=== PATIENT | male | born 1935 | race Caucasian/White ===

== ENCOUNTER 2017-11-06 05:19 | Day surgery (SDC) | payer MEDICARE, OTHER ==
[~2017-11-06] VITALS: Ht 172.7 cm; Wt 63.0 kg
[~2017-11-06 05:19] MED LIST: ASCO500 PO; ASPI-1182 PO; ATOR10TA84 PO; METAMUCIL283 GM PO; MULT-1124 PO; PANT40I PO; TAMS0.4C32 PO; VITAMIN D PO
[2017-11-06] MEDS ORDERED: SODIUM CHLORIDE 0.9% 1,000 ML IV ONE ×2 (05:56→07:15)
[2017-11-06 07:03] LABS: BASOPHILS % (AUTO) 0.6 % (0.0-2.0); EOSINOPHILS % (AUTO) 1.5 % (1.0-6.0); HEMATOCRIT 38.2 % (41-53); HEMOGLOBIN 13.2 g/dL (13.5-17.5); LYMPHOCYTES % (AUTO) 20.8 % (22.0-44.0); MEAN CORPUSCULAR HEMOGLOBIN 31.1 pg (26.0-34.0); MEAN CORPUSCULAR HGB CONC 34.5 G/dL (31.0-37.0); MEAN CORPUSCULAR VOLUME 90 fL (80-100); MONOCYTES # (AUTO) 0.5 K/uL (0.1-1.0); MONOCYTES % (AUTO) 9.7 % (2.0-9.0); NEUTROPHILS # (AUTO) 3.3 K/uL (1.8-7.7); NEUTROPHILS % (AUTO) 67.4 % (40.0-70.0); PLATELET COUNT (AUTO) 162 K/uL (150-450); RED BLOOD CELL COUNT(AUTO) 4.25 MIL/uL (4.50-5.90); RED CELL DISTRIBUTION WIDTH 13.2 % (11.5-14.5)
[2017-11-06 07:14] LABS: ANION GAP 6 mmol/L (8-16); CALCIUM, TOTAL 8.5 mg/dL (8.8-10.5); CARBON DIOXIDE 28 mmol/L (22-29); CHLORIDE 105 mmol/L (98-107); CREATININE 0.82 mg/dL (0.60-1.30); GLUCOSE,RANDOM 101 mg/dL (70-110); POTASSIUM 3.9 mmol/L (3.5-5.1); PROTHROMBIN TIME 10.4 SEC (9.4-11.6); SODIUM SERUM 139 mmol/L (136-145); UREA NITROGEN, BLOOD 18 mg/dL (7-18)
[2017-11-06 07:15] LABS: GLOMERULAR FILTR. RATE CALC > 60 mL/min (>60)
[2017-11-06] MEDS ORDERED: AMLO5TAB66 PO (07:32)
[2017-11-06] MEDS ORDERED: TAMS0.4C32 PO (07:32)
[2017-11-06] MEDS ORDERED: MECL-111 PO (07:34)
[2017-11-06] MEDS ORDERED: GABA-529 PO (07:34)
[2017-11-06] MEDS ORDERED: LIDOCAINE HCL/PF 1% 30 ML VIAL ONE (07:39)
[2017-11-06] MEDS ORDERED: SODIUM BICARBONATE 50 MEQ/50 ML VIAL ONE (07:39)
[2017-11-06 07:42] VITALS: BP 160/97
[2017-11-06] MEDS ORDERED: ALBU8.5H8 IH (07:47)
[2017-11-06] MEDS ORDERED: FURO-152 PO (07:47)
[2017-11-06] MEDS ORDERED: FentaNYL CITRATE-PF 100 MCG/2 ML VIAL ONE (08:04)
[2017-11-06] MEDS ORDERED: MIDAZOLAM HCL 2 MG/2 ML VIAL ONE (08:04)
[2017-11-06] MEDS ORDERED: LIDOCAINE 1% 30 ML/SOD BICARB 8.4% 4 ML SQ ONE (08:15)
[2017-11-06] MEDS ORDERED: FentaNYL CITRATE-PF 100 MCG/2 ML VIAL IVP ONE ×2 (08:15)
[2017-11-06] MEDS ORDERED: MIDAZOLAM HCL 2 MG/2 ML VIAL IVP ONE (08:15)
[2017-11-06 08:25] VITALS: BP 128/60
[2017-11-06] MEDS ORDERED: CeFAZolin 1 GM/DEXTROSE 50 ML IV ONE ×2 (11:16→12:00)
== END 2017-11-06 13:00 | disposition home or self-care (01) ==
LOC: SDS 05:19
PROVIDERS: ATTEND Internal Medicine Cardiovascular Disease
DX: I49.5 Sick sinus syndrome (principal); I49.8 Other specified cardiac arrhythmias; E11.9 Type 2 diabetes mellitus without complications; I10 Essential (primary) hypertension; E78.00 Pure hypercholesterolemia, unspecified; F32.9 Major depressive disorder, single episode, unspecified; I49.1 Atrial premature depolarization; N40.0 Benign prostatic hyperplasia without lower urinary tract symptoms; Z86.79 Personal history of other diseases of the circulatory system; Z85.46 Personal history of malignant neoplasm of prostate; Z79.01 Long term (current) use of anticoagulants; Z98.41 Cataract extraction status, right eye; Z79.82 Long term (current) use of aspirin; Z79.891 Long term (current) use of opiate analgesic; Z90.89 Acquired absence of other organs; Z87.891 Personal history of nicotine dependence; Z79.899 Other long term (current) drug therapy; Z98.890 Other specified postprocedural states
CPT/HCPCS: 99152; 99153; C1764; 33282; 93005; J0690; J2250; J3010; J3490; J7030

== ENCOUNTER 2019-03-29 05:27 | Day surgery (SDC) | payer MEDICARE, OTHER ==
[~2019-03-29] VITALS: Ht 172.7 cm; Wt 59.5 kg
[~2019-03-29 05:27] MED LIST changes: +ALBU8.5H8 IH; +AMLO5TAB66 PO; +APIX2.5T PO; -ASPI-1182 PO; +CHOL200016 PO; +CYCLOPENTOLATE HCL 1% 2 ML OPHTHALMIC SOLUTION ONE; +FLURBIPROFEN SODIUM 0.03% 2.5 ML OPHTHALMIC SOLUTION ONE; -METAMUCIL283 GM PO; +OFLOXACIN 0.3% 5 ML OPHTHALMIC SOLUTION ONE; -PANT40I PO; +PANT40VI14 PO; +PHENYLEPHRINE HCL 2.5% 2 ML OPHTHALMIC SOLUTION ONE; +PSYL575P4 PO; +RINGERS SOLUTION,LACTATED 500 ML IV ONE; +TAMS-13 PO; -TAMS0.4C32 PO; +TETRACAINE HCL/PF 0.5% 4 ML OPHTHALMIC SOLUTION ONE; +TROPICAMIDE 1% 2 ML OPHTHALMIC SOLUTION ONE; -VITAMIN D PO
[2019-03-29] MEDS ORDERED: RINGERS SOLUTION,LACTATED 500 ML IV ONE (05:30)
[2019-03-29] MEDS ORDERED: TETRACAINE HCL/PF 0.5% 4 ML OPHTHALMIC SOLUTION OS ONE (05:30)
[2019-03-29] MEDS: TROPICAMIDE 1% 2 ML OPHTHALMIC SOLUTION OS SCH ×3 (06:05→06:24)
[2019-03-29] MEDS: CYCLOPENTOLATE HCL 1% 2 ML OPHTHALMIC SOLUTION OS SCH ×3 (06:05→06:24)
[2019-03-29] MEDS: PHENYLEPHRINE HCL 2.5% 2 ML OPHTHALMIC SOLUTION OS SCH ×3 (06:05→06:24)
[2019-03-29] MEDS: FLURBIPROFEN SODIUM 0.03% 2.5 ML OPHTHALMIC SOLUTION OS SCH ×3 (06:05→06:24)
[2019-03-29] MEDS: OFLOXACIN 0.3% 5 ML OPHTHALMIC SOLUTION OS SCH ×3 (06:05→06:24)
[2019-03-29 06:23] LABS: GLUCOMETER DEV NAME(LOC) SDS.; GLUCOSE,POINT OF CARE 100 MG/DL (70-110)
[2019-03-29] MEDS ORDERED: [UNRECOGNIZED DRUG - CODE] PO (06:35)
[2019-03-29] MEDS ORDERED: MIDAZOLAM HCL 2 MG/2 ML VIAL IVP ONE (12:00)
[2019-03-29] MEDS ORDERED: FentaNYL CITRATE-PF 100 MCG/2 ML VIAL IVP ONE (12:00)
== END 2019-03-29 08:35 | disposition home or self-care (01) ==
LOC: SURGERY 05:27
PROVIDERS: ATTEND Ophthalmology
DX: H25.12 Age-related nuclear cataract, left eye (principal); I10 Essential (primary) hypertension; Z79.899 Other long term (current) drug therapy; Z85.46 Personal history of malignant neoplasm of prostate; Z87.891 Personal history of nicotine dependence; Z98.41 Cataract extraction status, right eye
CPT/HCPCS: 66982; 82962; 93005 ×2; C1780; J2250; J3010; J7120